=== PATIENT | male | born 1975 | race Hispanic/Latino ===

== ENCOUNTER 2016-12-20 23:48 | Emergency (ER) | payer OTHER ==
[~2016-12-20] VITALS: Ht 170.2 cm; Wt 81.6 kg
[~2016-12-20 23:48] MED LIST: CYCLOBENZAPRINE5 M2 PO; IBUPROFEN800 M1 PO
--- NOTE | 2016-12-21 01:46 | ED GENERAL ADULT ---
History of Present Illness General Chief Complaint: Laceration Procedure Stated Complaint: LT MIDDLE FINGER LAC Source: patient Exam Limitations: no limitations Vital Signs & Intake/Output Vital Signs & Intake/Output Vital Signs Date Time Temp Pulse Resp B/P Pulse O2 O2 Flow FiO2 Ox Delivery Rate 12/21 0343 97.5 73 18 132/84 98 Room Air 12/21 0209 Room Air 12/21 0014 97.1 69 18 139/89 97 Room Air Allergies Coded Allergies: NO KNOWN ALLERGIES (06/06/15) Reconcile Medications Cyclobenzaprine HCl 5 MG TABLET 1 TAB PO TIDPRN PRN PAIN Ibuprofen 800 MG TABLET 1 TAB PO TID PRN PAIN Triage Note: LAC LT MIDDLE FINGER ON A NAIL Triage Nurses Notes Reviewed? yes Onset: Abrupt Duration: hour(s): Timing: recent history HPI: 12/21/16 2:42 AM 41-year-old male presents to the emergency department with a laceration to his left middle finger. The onset of the symptoms were abrupt, the duration was earlier this evening, the severity is significant as his symptoms required to come to the emergency department for care. He has had a tetanus shot in the last 10 years. On physical examination he has a half-inch laceration over the proximal aspect of his left middle finger. Flexor digitorum profundus and superficialis are intact. He has full extension of the left finger. There is no subjective sensory deficits to the left middle finger. The injury occurred when he was moving a refrigerator and cut the finger on a nail. Past History Travel History Traveled to [place] past 21 day No Medical History Any Pertinent Medical History? 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 No Review of Systems Review of Systems Constitutional: Denies: fever. EENTM: Reports: no symptoms. Respiratory: Reports: no symptoms. Cardiovascular: Reports: no symptoms. GI: Reports: no symptoms. Genitourinary: Reports: no symptoms. Musculoskeletal: Reports: see HPI. Skin: Reports: see HPI. Neurological/Psychological: Reports: no symptoms. Hematologic/Endocrine: Reports: bleeding. Physical Exam Physical Exam General Appearance: well developed/nourished, alert, awake, anxious, mild distress Head: atraumatic, normal appearance Eyes: Bilateral: normal appearance, PERRL, EOMI. Ears, Nose, Throat: normal pharynx, normal ENT inspection Neck: normal inspection, supple Respiratory: normal breath sounds, chest non-tender, no respiratory distress Cardiovascular: regular rate/rhythm Peripheral Pulses: 4+ radial (L) Back: normal range of motion Neurologic/Psych: no motor/sensory deficits, awake, alert, oriented x 3 Skin: normal color, HE HAS A HALF inch laceration to the dorsal aspect of the left middle finger. laceration is clean. Comments: he can fully extend the left finger. Core Measures ACS in differential dx? No CVA/TIA Diagnosis: No Severe Sepsis Present: No Septic Shock Present: No Progress Differential Diagnoses I considered the following diagnoses in my evaluation of the patient: [ nerve injury, tendon injury, foreign body] Plan of Care: follow-up in ED in 7 days. Initial ED EKG: none Departure Departure Disposition: HOME OR SELF CARE Condition: Stable Clinical Impression Primary Impression: Laceration of finger Referrals: MEGAN MENDEZ MD (PCP/Family) Departure Forms: Customer Survey General Discharge Information Comments procedure under sterile technique and local anesthesia. 5 cc of 1% lidocaine without epinephrine were used. the wound was vigorously irrigated with saline. and was explored for foreign bodies, none were seen. the wound was closed with 4 3-0 nylon sutures. bacitracin and a sterile dressing was applied. patient tolerated the procedure well. he will follow-up in the ED for suture removal in 7 days. he was given instructions to return should he have increasing pain, discharge from the wound, or redness, as retained foreign body and infection remain a possibility. Critical Care Note Critical Care Note Critical Care Time: non-applicable
[2016-12-21 03:43] VITALS: BP 132/84
== END 2016-12-21 03:44 ==
LOC: ERH 23:48
DX: S61.213A Laceration without foreign body of left middle finger without damage to nail, initial encounter (principal); W45.0XXA Nail entering through skin, initial encounter

== ENCOUNTER 2016-12-27 15:27 | Emergency (ER) | payer OTHER ==
[~2016-12-27] VITALS: Ht 170.2 cm; Wt 81.6 kg
[2016-12-27 15:40] VITALS: BP 122/63
--- NOTE | 2016-12-27 16:10 | ED ANIMAL BITE/WOUND CHECK ---
History of Present Illness General Chief Complaint: Suture Removal/Wound Recheck Stated Complaint: PT IS FOR SUTURE REMOVAL Source: patient, family, old records Exam Limitations: no limitations Vital Signs & Intake/Output Vital Signs & Intake/Output Vital Signs Date Time Temp Pulse Resp B/P Pulse O2 O2 Flow FiO2 Ox Delivery Rate 12/27 1540 98.1 65 18 122/63 96 Room Air Allergies Coded Allergies: NO KNOWN ALLERGIES (06/06/15) Reconcile Medications Cyclobenzaprine HCl 5 MG TABLET 1 TAB PO TIDPRN PRN PAIN Ibuprofen 800 MG TABLET 1 TAB PO TID PRN PAIN Triage Note: PT TO TRIAGE FOR SUTURES REMOVAL TO LEFT 3RD FINGER. SUTURES WERE PLACED A WEEK AGO. DRESSING IN PLACE. Triage Nurses Notes Reviewed? yes Onset: Abrupt Duration: day(s): (6), better Timing: recent history Injury Environment: home Is Injury an Animal Bite? No Severity: mild Severity Numbers: 1 No Modifying Factors: none Associated Symptoms: denies HPI: 41-year-old male presents for suture removal status post sustaining laceration to the left third finger 6 days ago requiring 4 sutures here. He denies any complaints no discharge bleeding redness difficulty with range of motion of finger. No fever no chills he is otherwise without any complaints of pain or any other symptoms at this time. (CHELSEA MILLER) Past History Travel History Traveled to [place] past 21 day No Medical History Any Pertinent Medical History? 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 No (CHELSEA MILELR) Review of Systems Review of Systems Constitutional: Reports: see HPI. All Other Systems: Reviewed and Negative Comments Review of systems: See HPI, All other systems negative. Constitutional, no chills no fever, no malaise HEENT: no sore throat no congestion Cardiovascular: No chest pain , no palpitation Skin, no rashes, no change in skin Respiratory: No dyspnea no cough no sputum GI: No nausea no vomiting, no diarrhea, : No dysuria Muscle skeletal: No joint pain, no back pain, no neck pain, Neurologic: No numbness no headache Psych: No stress Heme/endocrine: No bruising no bleeding Immunology: No lymphadenopathy (CHELSEA MILLER) Physical Exam Physical Exam General Appearance: well developed/nourished, no apparent distress, alert, awake , comfortable Comments: Well-developed well-nourished patient in no apparent distress. HEENT: Atraumatic, extraocular motion intact Neck: Supple, FROM, Back: FROm Respiratory: No respiratory distress. Patient speaking in full complete sentences. Breath sounds clear to auscultation bilaterally: NO W/R/R Shoulder: Atraumatic/Stable. FROM . Elbow: Atraumatic/stable. FROM. No laxity Upper arm/Forearm: Atraumatic. Nontender. 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 Brisk cap refill Lower Extremities: full range of motion Neuro: Alert and oriented x3 Skin: Warm & dry;No appreciable rash on exposed skin Psych: Mood affect normal, normal memory normal judgment. (CHELSEA MILLER) Progress Differential Diagnosis: abscess, cellulitis, tenosysnovitis Plan of Care: Sutures 3 removed by me no wound dehiscence. pt tolearted procedure well. d/w pt return precautions, they feel comfortable with plan cleared for dc (CHELSEA MILLER) Departure Departure Time of Disposition: 1609 Disposition: HOME OR SELF CARE Condition: Stable Clinical Impression Primary Impression: Visit for suture removal Referrals: MEGAN MENDEZ MD (PCP/Family) Additional Instructions: Follow up with your primary care physician or return to ER with any concerns or signs of infection: Redness warmth swelling discharge fever chills Departure Forms: Customer Survey General Discharge Information (CHELSEA MILLER) PA/PUBLIC TRANSIT SPECIALIST Co-Sign Statement Statement: ED Attending supervision documentation- [] I saw and evaluated the patient. I have also reviewed all the pertinent lab results and diagnostic results. I agree with the findings and the plan of care as documented in the PA's/PUBLIC TRANSIT SPECIALIST's documentation. [X] I have reviewed the ED Record and agree with the PA's/PUBLIC TRANSIT SPECIALIST's documentation. [] Additions or exceptions (if any) to the PAs/PUBLIC TRANSIT SPECIALIST's note and plan are summarized below: [] (ARTEM VARGAS,MITCH Baumann)
== END 2016-12-27 16:30 ==
LOC: ERH 15:27
DX: S61.213D Laceration without foreign body of left middle finger without damage to nail, subsequent encounter (principal)
CPT/HCPCS: 99281

== ENCOUNTER 2017-11-30 01:56 | Emergency (ER) | payer OTHER ==
--- NOTE | 2017-11-30 02:04 | ED INFLUENZA/URI COMPLAINT ---
History of Present Illness General Chief Complaint: Upper Respiratory Sx/Fever Stated Complaint: FEVER,ASTHMA, SORE THROAT Source: patient, family Exam Limitations: no limitations Vital Signs & Intake/Output Vital Signs & Intake/Output Vital Signs Date Time Temp Pulse Resp B/P B/P Pulse O2 O2 Flow FiO2 Mean Ox Delivery Rate 11/30 0207 99.0 91 22 158/88 97 Room Air Allergies Coded Allergies: NO KNOWN ALLERGIES (06/06/15) Reconcile Medications Oseltamivir Phosphate (Tamiflu) 75 MG CAPSULE 1 CAP PO BID INFLUENZA Triage Nurses Notes Reviewed? yes HPI: Patient presents with fevers, chills, sore throat and wheezing. Symptoms all started earlier this afternoon. Patient took TheraFlu without relief. Patient denies any nausea or vomiting. No headache or blurry vision. His throat is scratchy sensation. There are no aggravating or mitigating factors. He rates it as moderate on the scale. There is no difficulty breathing or swallowing. There is no radiation. Past History Travel History Traveled to [place] past 21 day No Medical History Any Pertinent Medical History? 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 No Review of Systems Review of Systems Constitutional: Reports: see HPI, chills, fever. EENTM: Reports: see HPI, throat pain. Respiratory: Reports: see HPI, wheezing. Cardiovascular: Reports: no symptoms. GI: Reports: no symptoms. Genitourinary: Reports: no symptoms. Musculoskeletal: Reports: no symptoms. Skin: Reports: no symptoms. Neurological/Psychological: Reports: no symptoms. Hematologic/Endocrine: Reports: no symptoms. Immunologic/Allergic: Reports: no symptoms. All Other Systems: Reviewed and Negative Physical Exam Physical Exam General Appearance: well developed/nourished, alert, awake, mild distress Head: atraumatic, normal appearance Eyes: Bilateral: PERRL, EOMI. Ears, Nose, Throat: normal ENT inspection, pharyngeal erythema, DRY MUCOSA Neck: lymphadenopathy (R), lymphadenopathy (L) Respiratory: chest non-tender, wheezing Cardiovascular: regular rate/rhythm, normal peripheral pulses Gastrointestinal: normal bowel sounds, soft, non-tender, no organomegaly Back: normal inspection, normal range of motion Extremities: normal inspection, normal capillary refill, normal range of motion, no edema Neurologic/Psych: no motor/sensory deficits, awake, alert, oriented x 3, normal gait, normal mood/affect Skin: intact, normal color, warm/dry Core Measures Sepsis Present: No Sepsis Focused Exam Completed? No Progress Differential Diagnosis: influenza, pharyngitis Plan of Care: Orders Procedure Date/time Status RAPID VIRAL INFLUENZA A 11/30 203 Complete THROAT CULTURE W/QUICK STREP 11/30 203 Active Microbiology 11/30 209 NASOPHARYN: Influenza Virus A & B Rapid Smear - COMP INFLUENZA TYPE B Initial ED EKG: none Comments: BREATHING MUCH BETTER AFTER ALBUTEROL. Departure Departure Disposition: HOME OR SELF CARE Condition: Stable Clinical Impression Primary Impression: Influenza Referrals: Amparo VARGAS,Sung (PCP/Family) Additional Instructions: DRINK PLENTY OF FLUIDS TAKE TYLENOL AND/OR MOTRIN NEEDED FOR FEVERS TAKE TAMIFLU 1 PILL TWICE A DAY FOR 5 DAYS RETURN IF SYMPTOMS WORSEN OR FOR ANY CONCERNS USE YOUR INHALER NEEDED FOR WHEEZING Departure Forms: Customer Survey General Discharge Information Prescriptions: Current Visit Scripts Oseltamivir Phosphate (Tamiflu) 1 CAP PO BID #10 CAP
[2017-11-30 02:07] VITALS: BP 158/88
[2017-11-30] MEDS ORDERED: TAMIFLU75 M1 PO (02:43)
== END 2017-11-30 02:49 ==
LOC: ERH 01:56
DX: J11.1 Influenza due to unidentified influenza virus with other respiratory manifestations (principal)
CPT/HCPCS: 1263; 87804; 87804-59